=== PATIENT | female | born 1965 | race Caucasian/White ===

== ENCOUNTER 2020-01-03 16:44 | Emergency (ER) | payer OTHER ==
[~2020-01-03] VITALS: Ht 167.6 cm; Wt 61.0 kg
[2020-01-03 16:51] VITALS: BP 136/99
== END 2020-01-03 18:18 | disposition home or self-care (01) ==
LOC: ED 17:45
DX: J45.41 Moderate persistent asthma with (acute) exacerbation (principal); Z20.828 Contact with and (suspected) exposure to other viral communicable diseases; B34.9 Viral infection, unspecified; R00.0 Tachycardia, unspecified
CPT/HCPCS: 71045; 93005; 99285; U0001